=== PATIENT | male | born 1950 | race Caucasian/White ===

== ENCOUNTER 2016-09-26 10:44 | Inpatient (IN) | payer BC, MEDICARE, OTHER ==
[2016-09-26] MEDS ORDERED: RX INFO: IV CONTRAST WAS GIVEN 1 EACH MISC MISCELLANE PRN (11:39)
[2016-09-26] MEDS ORDERED: DIPH,PERTUS(ACELL)TETVAC-LF 0.5 ML VIAL IM ONE (11:51)
[2016-09-26 12:12] LABS: Basophils % (A) 0 %; CH 29.2; CHCM 32.8; Eosinophils # (A) 0.3 k/uL (0-0.7); Eosinophils % (A) 2 %; HCT 43.2 % (39.0-53.0); HDW 2.67; HGB 14.3 gm/dL (13.0-17.5); Luc # (Auto) 0.12; Luc % (Auto) 1; Lymphocytes # (A) 1.3 k/uL (1.0-4.8); Lymphocytes % (A) 9 %; MCH 29.6 pg (25.0-35.0); MCV 89.7 fL (80.0-100.0); Mean Platelet Volume 7.4; Monocytes # (A) 0.5 k/uL (0-1.0); Monocytes % (A) 3 %; Neutrophils # (A) 13.1 k/uL (1.3-7.7); Neutrophils % (A) 86 %; RBC 4.82 m/uL (4.30-5.90); RDW 14.8 % (11.5-15.5); WBC 15.3 k/uL (3.8-10.6); WBC (Perox) 15.34
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
[2016-09-26 12:27] LABS: ALT 35 U/L (21-72); AST 37 U/L (17-59); Alcohol <10 mg/dL; Alkaline Phosphatase 100 U/L (38-126); Anion Gap 10 mmol/L; Blood Urea Nitrogen 27 mg/dL (9-20); Calcium 8.5 mg/dL (8.4-10.2); Carbon Dioxide 23 mmol/L (22-30); Chloride 107 mmol/L (98-107); Glucose 106 mg/dL (74-99); Non-African American GFR(MDRD) 52 (>60 ml/min/1.73 sqM); Potassium 4.9 mmol/L (3.5-5.1); Sodium 140 mmol/L (137-145); Total Bilirubin 1.2 mg/dL (0.2-1.3)
[2016-09-26 12:32] LABS: INR 1.1 (<1.1); Partial Thromboplastin Time 22.3 sec (22.0-30.0); Prothrombin Time 10.7 sec (9.0-12.0)
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
[2016-09-26 12:55] LABS: Troponin I 0.014 ng/mL (0.000-0.034)
[2016-09-26 13:00] LABS: Creatine Kinase MB 8.6 ng/mL (0.0-2.4)
[2016-09-26 13:10] LABS: Appearance,Urine Clear (Clear); Bilirubin,Urine Negative (Negative); Glucose,Urine (UA) Negative (Negative); Ketones,Urine Negative (Negative); Leukocyte Esterase,Urine Negative (Negative); Nitrite,Urine Negative (Negative); PH, Urine 5.5 (5.0-8.0); Particle Count 2513; Protein,Urine 1+ (Negative); RBC,Urine 5 /hpf (0-5); Specific Gravity,Urine 1.023 (1.001-1.035); Sperm,Urine Moderate /hpf; UA Billing (MACRO vs. MICRO) MICRO; Urobilinogen,Urine <2.0 mg/dL (<2.0); WBC,Urine 3 /hpf (0-5)
--- NOTE | 2016-09-26 14:02 | XR ---
EXAMINATION TYPE: XR pelvis AP view DATE OF EXAM: 09/26/2016 CLINICAL HISTORY: pain TECHNIQUE: Single view the pelvis is submitted. FINDINGS: No evidence for fracture, dislocation or bony lesion. Joint spaces are well-preserved. S I joints appear symmetric. Right hip prosthesis is intact. IMPRESSION: 1. No acute fracture or dislocation seen. ICD 10 NO FRACTURE, INITIAL EVALUATION
--- NOTE | 2016-09-26 14:02 | XR ---
EXAMINATION TYPE: XR hand complete RT DATE OF EXAM ORDERED: 09/26/2016 HISTORY: Pain. COMPARISON: None. FINDINGS: No fracture or dislocation is seen. There are degenerative changes in the first carpometac arpal joint as well as the triscaphe joint. There is near complete loss of the radiocarpal joint. IMPRESSION: 1. NO ACUTE OSSEOUS LESION. 2. MODERATE DEGENERATIVE CHANGE.
--- NOTE | 2016-09-26 14:03 | XR ---
EXAMINATION TYPE: XR humerus RT DATE OF EXAM ORDERED: 09/26/2016 HISTORY: Pain. COMPARISON: None. FINDINGS: There are severe degenerative changes in the right shoulder with near complete loss of the shoulder joint space. There is remodeling change. There is decentering of the humeral head within th e glenohumeral joint. No fracture or dislocation is seen. IMPRESSION: 1. NO ACUTE OSSEOUS LESION. 2. SEVERE DEGENERATIVE CHANGE IN THE RIGHT SHOULDER.
--- NOTE | 2016-09-26 14:03 | XR ---
EXAMINATION TYPE: XR forearm RT DATE OF EXAM ORDERED: 09/26/2016 HISTORY: Pain. COMPARISON: None. FINDINGS: No fracture or dislocation is seen. No elbow joint effusion is seen. There is severe degen erative change in the radiocarpal joint of the right wrist. IMPRESSION: 1. NO ACUTE OSSEOUS LESION. 2. DEGENERATIVE CHANGE.
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
[2016-09-26] MEDS ORDERED: SODIUM CHLORIDE 0.9% 1,000 ML IV STA (14:11)
[2016-09-26] MEDS ORDERED: TOPICAL SKIN ADHESIVE 1 EACH AMP TOPICAL ONE (15:33)
[2016-09-26] MEDS ORDERED: ONDANSETRON 4 MG/2 ML VIAL IVP STA (15:35)
[2016-09-26] MEDS ORDERED: HYDROmorphone 1 MG/ML 1 ML SYRINGE IVP STA (15:35)
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
[2016-09-26] MEDS ORDERED: NALOXONE 0.4 MG/ML 1 ML VIAL IV PRN (16:28)
[2016-09-26] MEDS ORDERED: ONDANSETRON 4 MG/2 ML VIAL IVP PRN (16:28)
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
[2016-09-26] MEDS: SODIUM CHLORIDE 0.9% 1,000 ML IV SCH (18:07)
[2016-09-26] MEDS ORDERED: HYDROmorphone 1 MG/ML 1 ML SYRINGE IVP PRN ×2 (18:37)
[2016-09-26] MEDS: METOPROLOL SUCCINATE (ER) 50 MG TAB.ER.24H PO SCH (18:45)
[2016-09-26] MEDS: HYDROcodone/APAP 7.5-325MG 1 EACH TAB PO PRN ×2 (18:49→23:08)
[2016-09-26] MEDS: FAMOTIDINE 20 MG TAB PO SCH (21:03)
[2016-09-26] MEDS: ATORVASTATIN 10 MG TAB PO SCH (21:03)
[2016-09-27] MEDS: HYDROcodone/APAP 7.5-325MG 1 EACH TAB PO PRN ×5 (03:31→20:38)
[2016-09-27] MEDS: SODIUM CHLORIDE 0.9% 1,000 ML IV SCH ×2 (05:52→15:44)
[2016-09-27] MEDS: FAMOTIDINE 20 MG TAB PO SCH ×2 (07:48→21:45)
[2016-09-27] MEDS: VALSARTAN 160 MG TAB PO SCH (07:49)
[2016-09-27 08:03] LABS: Basophils % (A) 0 %; CH 29.1; CHCM 32.3; Eosinophils # (A) 0.1 k/uL (0-0.7); Eosinophils % (A) 1 %; HDW 2.58; HGB 12.4 gm/dL (13.0-17.5); Luc # (Auto) 0.11; Luc % (Auto) 2; Lymphocytes # (A) 1.1 k/uL (1.0-4.8); Lymphocytes % (A) 18 %; MCH 29.5 pg (25.0-35.0); MCHC 32.7 g/dL (31.0-37.0); MCV 90.5 fL (80.0-100.0); Mean Platelet Volume 7.5; Monocytes # (A) 0.4 k/uL (0-1.0); Monocytes % (A) 7 %; Neutrophils # (A) 4.4 k/uL (1.3-7.7); Neutrophils % (A) 72 %; RDW 14.9 % (11.5-15.5); WBC 6.1 k/uL (3.8-10.6); WBC (Perox) 5.89
[2016-09-27 08:15] LABS: Anion Gap 6 mmol/L; Blood Urea Nitrogen 27 mg/dL (9-20); Calcium 7.9 mg/dL (8.4-10.2); Carbon Dioxide 25 mmol/L (22-30); Chloride 108 mmol/L (98-107); Glucose 111 mg/dL (74-99); Non-African American GFR(MDRD) 53 (>60 ml/min/1.73 sqM); Potassium 4.5 mmol/L (3.5-5.1); Sodium 139 mmol/L (137-145)
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
[2016-09-27] MEDS: ASPIRIN 81 MG CHEW PO SCH (11:54)
--- NOTE | 2016-09-27 12:03 | XR ---
EXAMINATION TYPE: XR chest 2V DATE OF EXAM: 09/27/2016 COMPARISON: NONE HISTORY: Shortness of breath TECHNIQUE: Frontal and lateral views of the chest are obtained. FINDINGS: Scattered senescent parenchymal changes noted. Hyperinflation compatible with COPD. There is persistent right perihilar infiltrate. Correlate for pneumonia. Heart size is stable. Mediastinal structures are stable and grossly unremarkable. No evidence for hilar prominence. Degenerative changes dorsal spine. IMPRESSION: 1. There is persistent right perihilar infiltrate. Correlate for pneumonia.
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
[2016-09-27] MEDS: METOPROLOL SUCCINATE (ER) 50 MG TAB.ER.24H PO SCH (17:29)
[2016-09-27] MEDS: ATORVASTATIN 10 MG TAB PO SCH (21:45)
[2016-09-28] MEDS: HYDROcodone/APAP 7.5-325MG 1 EACH TAB PO PRN ×4 (02:09→20:52)
[2016-09-28] MEDS: SODIUM CHLORIDE 0.9% 1,000 ML IV SCH (06:24)
[2016-09-28] MEDS: FAMOTIDINE 20 MG TAB PO SCH ×2 (08:13→20:51)
[2016-09-28] MEDS: VALSARTAN 160 MG TAB PO SCH (08:13)
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
[2016-09-28] MEDS ORDERED: MAGNESIUM HYDROXIDE 2,400 MG/10 ML CUP PO PRN (09:13)
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
[2016-09-28] MEDS ORDERED: NEOMYCIN-BACITRACIN-POLY OINT 14 GM TUBE TOPICAL ONE (10:49)
[2016-09-28] MEDS: DOCUSATE 100 MG CAP PO SCH (11:29)
[2016-09-28] MEDS: ASPIRIN 81 MG CHEW PO SCH (12:47)
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
[2016-09-28] MEDS: METOPROLOL SUCCINATE (ER) 50 MG TAB.ER.24H PO SCH (17:14)
[2016-09-28] MEDS: ATORVASTATIN 10 MG TAB PO SCH (20:51)
[2016-09-29] MEDS: HYDROcodone/APAP 7.5-325MG 1 EACH TAB PO PRN ×3 (06:37→20:49)
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
[2016-09-29] MEDS: FAMOTIDINE 20 MG TAB PO SCH ×2 (09:40→20:38)
[2016-09-29] MEDS: VALSARTAN 160 MG TAB PO SCH (09:40)
[2016-09-29] MEDS: DOCUSATE 100 MG CAP PO SCH (09:40)
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
[2016-09-29 11:28] VITALS: RESP 16
[2016-09-29] MEDS: ASPIRIN 81 MG CHEW PO SCH (11:51)
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
[2016-09-29] MEDS: METOPROLOL SUCCINATE (ER) 50 MG TAB.ER.24H PO SCH (17:31)
[2016-09-29] MEDS: ATORVASTATIN 10 MG TAB PO SCH (20:38)
[2016-09-30 07:40] VITALS: BP 134/72; PULSE 85; TEMP 97.5
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
[2016-09-30] MEDS: DOCUSATE 100 MG CAP PO SCH (09:28)
[2016-09-30] MEDS: FAMOTIDINE 20 MG TAB PO SCH (09:28)
[2016-09-30] MEDS: VALSARTAN 160 MG TAB PO SCH (09:28)
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
[2016-09-30] MEDS: ASPIRIN 81 MG CHEW PO SCH (12:42)
== END 2016-09-30 13:35 | DRG 184 ==
LOC: EC 10:44 → 6SEL 16:39 → 5MS5E 09-29 23:25
PROVIDERS: ADMIT Surgery; ATTEND Surgery
PROC: 0HQFXZZ Repair Right Hand Skin, External Approach (ICD-10-PCS; principal; 2016-09-26)
PROC: 2W3CX1Z Immobilization of Right Lower Arm using Splint (ICD-10-PCS; 2016-09-26)
PROC: 2W3 Placement, Anatomical Regions, Immobilization (ICD-10-PCS; 2016-09-26)
PROC: 2W35X3Z Immobilization of Back using Brace (ICD-10-PCS; 2016-09-26)
PROC: 0SS Lower Joints, Reposition (ICD-10-PCS; 2016-09-26)
PROC: 3E0234Z Introduction of Serum, Toxoid and Vaccine into Muscle, Percutaneous Approach (ICD-10-PCS; 2016-09-26)
DX: S22.21XA Fracture of manubrium, initial encounter for closed fracture (principal); S52.514A Nondisplaced fracture of right radial styloid process, initial encounter for closed fracture; S32.019A Unspecified fracture of first lumbar vertebra, initial encounter for closed fracture; S27.329A Contusion of lung, unspecified, initial encounter; S32.029A Unspecified fracture of second lumbar vertebra, initial encounter for closed fracture; I42.9 Cardiomyopathy, unspecified; S32.039A Unspecified fracture of third lumbar vertebra, initial encounter for closed fracture; S32.049A Unspecified fracture of fourth lumbar vertebra, initial encounter for closed fracture; S22.41XA Multiple fractures of ribs, right side, initial encounter for closed fracture; N13.2 Hydronephrosis with renal and ureteral calculous obstruction; S16.1XXA Strain of muscle, fascia and tendon at neck level, initial encounter; S61.411A Laceration without foreign body of right hand, initial encounter; S93.124A Dislocation of metatarsophalangeal joint of right lesser toe(s), initial encounter; S92.344A Nondisplaced fracture of fourth metatarsal bone, right foot, initial encounter for closed fracture; S20.212A Contusion of left front wall of thorax, initial encounter; S30.1XXA Contusion of abdominal wall, initial encounter; N18.9 Chronic kidney disease, unspecified; I12.9 Hypertensive chronic kidney disease with stage 1 through stage 4 chronic kidney disease, or unspecified chronic kidney disease; E78.5 Hyperlipidemia, unspecified; K21.9 Gastro-esophageal reflux disease without esophagitis; J98.6 Disorders of diaphragm; R53.1 Weakness; I45.4 Nonspecific intraventricular block; I44.4 Left anterior fascicular block; F40.240 Claustrophobia; R40.2410 Glasgow coma scale score 13-15, unspecified time; M19.031 Primary osteoarthritis, right wrist; M19.041 Primary osteoarthritis, right hand; R91.8 Other nonspecific abnormal finding of lung field; R59.0 Localized enlarged lymph nodes; M25.561 Pain in right knee; R93.8 Abnormal findings on diagnostic imaging of other specified body structures; H53.8 Other visual disturbances; R42 Dizziness and giddiness; Z23 Encounter for immunization; Z96.662 Presence of left artificial ankle joint; Z96.659 Presence of unspecified artificial knee joint; Z87.19 Personal history of other diseases of the digestive system; Z87.01 Personal history of pneumonia (recurrent); Z88.1 Allergy status to other antibiotic agents; Z79.82 Long term (current) use of aspirin; Z90.49 Acquired absence of other specified parts of digestive tract; Z96.641 Presence of right artificial hip joint; Z82.49 Family history of ischemic heart disease and other diseases of the circulatory system; Z79.899 Other long term (current) drug therapy; Z87.442 Personal history of urinary calculi; V43.52XA Car driver injured in collision with other type car in traffic accident, initial encounter; Y92.410 Unspecified street and highway as the place of occurrence of the external cause
CPT/HCPCS: 12002; 28630; 29125; 36415; 70450; 71010; 71020; 71260; 72125; 72170; 74177; 80048; 80053; 80306; 80320; 81001; 82550; 82553; 84484; 85025; 85610; 85730; 86850; 86900; 86901; 90471; 90715; 93005; 96361; 96374; 96375; 99285

== ENCOUNTER → 2017-01-26 | Outpatient (CLI) | payer MEDICARE, BC ==
--- NOTE | 2017-01-26 15:57 | XR ---
EXAMINATION TYPE: XR KUB DATE OF EXAM: 01/26/2017 3:50 PM CLINICAL HISTORY: Left-sided kidney stone. TECHNIQUE: Two supine KUB images of the abdomen are obtained. COMPARISON: CT chest abdomen and pelvis September 26, 2016. FINDINGS: Large obstructing distal ureter stone is likely still present in the left pelvis less well seen on x-ray versus CT. No additional renal calculi are clearly seen. There is scoliotic curvature with marked disc space narrowing, sclerosis, and spurring in the left as pect of the mid to lower lumbar spine. Cholecystectomy clips are redemonstrated. There are healing fr actures of the posterior right 10th and 11th ribs now identified. Metallic hardware from right hip westfall rgery is redemonstrated only partially imaged currently. Overall nonobstructive bowel gas pattern is noted. IMPRESSION: Large distal left ureter calculus may still be present though is less well seen on plain films versus CT.
== END | disposition home or self-care (01) ==
LOC: RADXRMAIN 15:39
PROVIDERS: ATTEND Urology
DX: N20.0 Calculus of kidney (principal)
CPT/HCPCS: 74000

== ENCOUNTER 2017-02-10 10:52 | Day surgery (SDC) | payer MEDICARE, BC ==
[2017-02-04 13:07] VITALS: BMI 32.1
[~2017-02-10 10:52] MED LIST: HYDROmorphone 0.5 MG/0.5 ML SYRINGE IVP PRN; LACTATED RINGERS 1,000 ML IV SCH; LEVOFLOXACIN 500MG-D5W PMX 500 MG in DEXTROSE/WATER 1 100ML.BAG IVPB ONE; ONDANSETRON 4 MG/2 ML VIAL IVP ONE
--- NOTE | 2017-02-10 10:56 | XR ---
EXAMINATION TYPE: XR KUB DATE OF EXAM: 02/10/2017 10:47 AM CLINICAL HISTORY: Left-sided nephrolithiasis TECHNIQUE: Single supine KUB image of the abdomen is obtained. COMPARISON: 01/26/2017 and 09/26/2016 FINDINGS: Persistent approximately 1.0 x 0.9 cm left distal ureteral calculus is redemonstrated near the ureterovesicular junction. No additional renal or ureteral calculi are seen. Cholecystectomy clip s are seen within the right upper quadrant. Right femoral arthroplasty is present. Mild S-shaped scol iotic curvature of the visualized thoracolumbar spine with moderate degenerative changes. Scattered g as is seen in non-distended small bowel loops. Gas and fecal material is seen in non-distended colon. IMPRESSION: 1. Similar approximately 1.0 x 0.9 cm left distal ureteral calculus. 2. No additional radiopaque renal or ureteral calculi.
[2017-02-10] MEDS ORDERED: LIDOCAINE 1% 20 ML VIAL (10MG/ML) FOR IV START INTRADERMA ONE (11:43)
[2017-02-10] MEDS ORDERED: PROPOFOL 10 MG/ML 20 ML VIAL IV ONE (13:01)
[2017-02-10] MEDS ORDERED: MIDAZOLAM 2 MG/2 ML VIAL ONE (13:01)
[2017-02-10] MEDS ORDERED: ePHEDrine SULFATE/0.9% NACL/PF 50 MG/5 ML SYRINGE IV ONE (13:01)
[2017-02-10] MEDS ORDERED: LIDOCAINE 1% INJ 10MG/ML (20 ML MDV) ONE (13:01)
[2017-02-10] MEDS ORDERED: fentaNYL (PF) 50 MCG/ML 2 ML AMP ONE (13:01)
[2017-02-10] MEDS ORDERED: PHENYLEPHRINE-0.9% NACL SYG 1 MG/10 ML SYRINGE ONE (13:01)
[2017-02-10] MEDS ORDERED: SUCCINYLCHOLINE CHLORIDE VIAL 200 MG/10 ML VIAL IV ONE (13:01)
[2017-02-10] MEDS ORDERED: LACTATED RINGERS 1,000 ML IV ONE ×2 (14:34)
[2017-02-10] MEDS ORDERED: IOHEXOL 350 MG/ML 50ML BOTTLE IRRIGATION ONE (15:35)
--- NOTE | 2017-02-10 15:56 | P.OP ---
Date of Procedure: 02/10/17 Preoperative Diagnosis: Left Ureteral Calculus Postoperative Diagnosis: Same Procedure(s) Performed: Cystoscopy, Left Ureteroscopy With Holmium Laser Lithotripsy And Stone Basketing , Left Ureteral Stent Insertion Anesthesia: QUE Surgeon: Bryan Suarez Estimated Blood Loss (ml): 20 IV fluids (ml): 2,500 Pathology: none sent Condition: stable Disposition: PACU Indications for Procedure: He is a 66-year-old male with a history of recurrent urolithiasis. A 24-hour urine study has shown several abnormalities, including diminished urine total volume, hypercalciuria, hyperoxaluria, and hypocitraturia. He was advised to increase citrate and fluids, and decrease his calcium and oxalate consumption. He declined treatment with potassium citrate, as well as a repeat 24-hour urine study. He was recently found to have a left distal ureteral calculus causing significant left hydronephrosis, and he has elected to undergo ureteroscopic removal of the calculus. Operative Findings: Large left distal ureteral calculus, fragmented completely. Description of Procedure: The patient was taken to the operating room and placed in the dorsolithotomy position, with legs supported in José Manuel stirrups. The external genitalia was prepped and draped sterilely. The 30 lens was used to introduce the 19-Libyan Stortz cystoscopic sheath through the urethra and into the bladder under direct vision. The prostatic urethra showed evidence of lateral lobe enlargement resulting in complete occlusion. The bladder was examined in its entirety. Both ureteral orifices were normal anatomic location and configuration. No tumors or foreign bodies were seen. The [facility] semirigid ureteroscope was advanced into the bladder, and the left ureteral orifice was cannulated. The ureteroscope was advanced under direct vision, and a large calculus was identified. The 200 micron Holmium laser probe was passed through the ureteroscope, and lithotripsy was performed. Initially, a testing technique was utilized.. The then, the settings were changed to perform fragmentation of the closure of the calculus. A 1.9-Libyan nitinol basket was then used to retrieve the larger calculus fragments. Those were remaining were less than 1 mm in size. There is no evidence of ureteral perforation. A 0.035 inch Glidewire was passed through the ureteroscope and up to the left renal pelvis. The mid ureter coursed medially, and therefore an open-ended ureteral catheter was passed over the Glidewire, up to the left renal pelvis. Contrast was injected to confirm placement within the intrarenal collecting system. The Glidewire was then passed through the ureteral catheter, which was removed. The Glidewire was then backloaded into the cystoscope, which was passed into the bladder. A 26 cm, 4.8-Libyan double-J ureteral stent was placed over the wire. Proper stent positioning was verified fluoroscopically and endoscopically. The bladder was emptied and the cystoscope removed. The patient tolerated the procedure well and was taken to the recovery room in stable condition.
[2017-02-10 15:59] VITALS: RESP 16; TEMP 98.3
[2017-02-10 18:04] VITALS: BP 121/78; PULSE 94
--- NOTE | 2017-02-11 07:23 | FL ---
EXAMINATION TYPE: FL urography retrograde DATE OF EXAM: 02/10/2017 COMPARISON: NONE HISTORY: Left ureteral calculus with lithotripsy and stent insertion TECHNIQUE: Fluoroscopy. FINDINGS/IMPRESSION: Fluoroscopic guidance was provided during procedure performed by Dr. Suarez. A total of 31 seconds of fluoroscopic time was utilized during the procedure and 1 spot images was acq uired.
== END 2017-02-10 18:28 | disposition home or self-care (01) ==
LOC: OR 10:52
PROVIDERS: ATTEND Urology
DX: N13.2 Hydronephrosis with renal and ureteral calculous obstruction (principal); N28.1 Cyst of kidney, acquired; N40.1 Benign prostatic hyperplasia with lower urinary tract symptoms; R94.4 Abnormal results of kidney function studies; E83.52 Hypercalcemia; E72.53 Primary hyperoxaluria; I42.9 Cardiomyopathy, unspecified; E78.00 Pure hypercholesterolemia, unspecified; I10 Essential (primary) hypertension; K21.9 Gastro-esophageal reflux disease without esophagitis; Z79.82 Long term (current) use of aspirin; Z79.2 Long term (current) use of antibiotics; Z79.899 Other long term (current) drug therapy; Z88.1 Allergy status to other antibiotic agents
CPT/HCPCS: 74000; 74420; 52356; C2625; C1758 ×2; C1769; J2250; J0330; J1956; J2001; J3010; J2370; J2704; Q9967

== ENCOUNTER → 2017-04-14 | Outpatient (CLI) | payer MEDICARE, BC ==
--- NOTE | 2017-04-14 09:15 | US ---
EXAMINATION TYPE: US kidneys/renal and bladder DATE OF EXAM: 04/14/2017 COMPARISON: CT and US CLINICAL HISTORY: R93.4 HX OF HYDRONEPHROSIS. History of kidney stones and hydro EXAM MEASUREMENTS: Right Kidney: 13.3 x 6.2 x 5.9 cm Left Kidney: 12.1 x 5.8 x 5.8 cm Right Kidney: No evidence of hydro, cyst mid= 2.8 x 2.6 x 3.4 cm/ Possible, small calculi scattered t hroughout, largest= 5mm Left Kidney: Multicystic with largest cyst mid= 5.1 x 4.4 x 4.4 cm/ Cortical thinning, difficult to v isualize kidney Bladder: wnl Bilateral Jets seen: Only right jet visualized IMPRESSION: 1. Renal cystic changes bilaterally. 2. Nonobstructing right-sided nephrolithiasis.
== END | disposition home or self-care (01) ==
LOC: RADUSWWP 08:31
PROVIDERS: ATTEND Urology
DX: N20.0 Calculus of kidney (principal); N28.1 Cyst of kidney, acquired; Z87.448 Personal history of other diseases of urinary system
CPT/HCPCS: 76770

== ENCOUNTER → 2017-06-08 | Outpatient (CLI) | payer MEDICARE, BC ==
[2017-06-08 10:33] LABS: Potassium 5.3 mmol/L (3.5-5.1)
== END | disposition home or self-care (01) ==
LOC: LABWHC1 09:42
PROVIDERS: ATTEND Urology
DX: N20.1 Calculus of ureter (principal); R82.99 Other abnormal findings in urine
CPT/HCPCS: 36415; 80051

== ENCOUNTER → 2018-06-03 | Outpatient (CLI) | payer MEDICARE, BC ==
--- NOTE | 2018-06-03 15:09 | CT ---
EXAMINATION TYPE: CT chest wo con DATE OF EXAM: 06/03/2018 COMPARISON: Chest x-ray 05/28/[address] 03/19/2017 HISTORY: Hilar adenopathy CT DLP: 610.30 mGycm. Automated Exposure Control for Dose Reduction was Utilized. TECHNIQUE: CT scan of the thorax is performed without IV contrast. FINDINGS: Lack of contrast could compromise sensitivity. LUNGS: Thickened interstitial bands are again noted within the perihilar locations. There is no pleural effusion or pneumothorax seen. The tracheobronchial tree is patent. MEDIASTINUM: Extensive hilar calcifications and soft tissue prominence is stable compared to prior ex am. No cardiomegaly or pericardial effusion is seen. OTHER: Cystic changes associated with the kidneys is again noted. Diverticular change present within the colon. Patient is post cholecystectomy. Surgical clips are present. 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 IMPRESSION: Exam is stable. Old granulomatous disease. Noncontrast exam.
== END | disposition home or self-care (01) ==
LOC: RADCTMAIN 12:55
PROVIDERS: ATTEND Internal Medicine
DX: R59.0 Localized enlarged lymph nodes (principal); Z88.1 Allergy status to other antibiotic agents
CPT/HCPCS: 71250

== ENCOUNTER → 2018-08-25 | Outpatient (CLI) | payer MEDICARE, BC ==
[2018-08-25 10:03] LABS: Basophils % (A) 0 %; Eosinophils # (A) 0.4 k/uL (0-0.7); Eosinophils % (A) 6 %; HCT 46.8 % (39.0-53.0); HGB 14.8 gm/dL (13.0-17.5); Lymphocytes # (A) 1.5 k/uL (1.0-4.8); Lymphocytes % (A) 24 %; MCH 28.1 pg (25.0-35.0); MCHC 31.7 g/dL (31.0-37.0); MCV 88.7 fL (80.0-100.0); Mean Platelet Volume 7.1; Monocytes # (A) 0.4 k/uL (0-1.0); Monocytes % (A) 6 %; Neutrophils # (A) 3.7 k/uL (1.3-7.7); Neutrophils % (A) 60 %; Platelet Count 162 k/uL (150-450); RBC 5.28 m/uL (4.30-5.90); RDW 15.6 % (11.5-15.5); WBC 6.1 k/uL (3.8-10.6)
[2018-08-25 12:55] LABS: Erythrocyte Sedimentation Rate 6 mm/hr (0-15)
[2018-08-25 18:20] LABS: Albumin 4.3 g/dL (3.80-4.90); Albumin/Globulin Ratio 2.05 (1.60-3.17); Anion Gap 11.4 mmol/L (4.00-12.00); C Reactive Protein 0.6 mg/dL (0.0-0.8); Calcium 9.2 mg/dL (8.7-10.3); Carbon Dioxide 25.6 mmol/L (21.6-31.8); Globulin 2.1 g/dL (1.6-3.3); LDL Cholesterol,Calculated 76.6 mg/dL (0.0-131.0); Magnesium 1.8 mg/dL (1.5-2.4); Potassium 5.4 mmol/L (3.5-5.5); Total Bilirubin 0.9 mg/dL (0.3-1.2); Total Protein 6.4 g/dL (6.2-8.2); Uric Acid 7.9 mg/dL (3.7-8.7); VLDL Calculation 34.4 mg/dL (5.00-40.00)
[2018-08-25 18:27] LABS: T4, Free (Free Thyroxine) 1.1 ng/dL (0.80-1.80)
[2018-08-25 18:42] LABS: Iron Saturation 18.24 (15.00-50.00)
[2018-08-25 20:43] LABS: Hemoglobin A1C 5.8 % (4.0-6.0)
== END | disposition home or self-care (01) ==
LOC: LABWHC1 08:34
PROVIDERS: ATTEND Urology
DX: C61 Malignant neoplasm of prostate (principal); E78.5 Hyperlipidemia, unspecified; D64.9 Anemia, unspecified; I11.9 Hypertensive heart disease without heart failure; I43 Cardiomyopathy in diseases classified elsewhere
CPT/HCPCS: 36415; 80053; 80061; 82550; 82728; 83036; 83540; 83550; 83735; 84153; 84439; 84443; 84550; 85025; 85652; 86140

== ENCOUNTER → 2019-02-25 | Outpatient (CLI) | payer MEDICARE, BC | END | disposition home or self-care (01) | LOC: LABWHC1 10:48 | PROVIDERS: ATTEND Urology | DX: C61 Malignant neoplasm of prostate (principal) | CPT/HCPCS: 36415; 84153 ==

== ENCOUNTER → 2019-03-09 | Outpatient (CLI) | payer MEDICARE, BC ==
[2019-03-09 11:07] LABS: Basophils # (A) 0.1 k/uL (0-0.2); Basophils % (A) 1 %; Eosinophils # (A) 0.2 k/uL (0-0.7); Eosinophils % (A) 3 %; HCT 51.3 % (39.0-53.0); HGB 16.2 gm/dL (13.0-17.5); Lymphocytes # (A) 1.4 k/uL (1.0-4.8); Lymphocytes % (A) 20 %; MCH 28.4 pg (25.0-35.0); MCHC 31.6 g/dL (31.0-37.0); MCV 89.8 fL (80.0-100.0); Mean Platelet Volume 7.2; Monocytes # (A) 0.4 k/uL (0-1.0); Monocytes % (A) 6 %; Neutrophils # (A) 4.7 k/uL (1.3-7.7); Neutrophils % (A) 68 %; Platelet Count 161 k/uL (150-450); RBC 5.71 m/uL (4.30-5.90); RDW 14.7 % (11.5-15.5)
[2019-03-09 11:10] LABS: Appearance,Urine Clear (Clear); Bilirubin,Urine Negative (Negative); Blood,Urine Trace (Negative); Color,Urine Yellow; Glucose,Urine (UA) Negative (Negative); Ketones,Urine Negative (Negative); Leukocyte Esterase,Urine Negative (Negative); Mucus,Urine Rare /hpf; Nitrite,Urine Negative (Negative); PH, Urine 5.5 (5.0-8.0); Protein,Urine Negative (Negative); RBC,Urine 1 /hpf (0-5); Specific Gravity,Urine 1.018 (1.001-1.035); Urobilinogen,Urine <2.0 mg/dL (<2.0); WBC,Urine 1 /hpf (0-5)
[2019-03-09 11:19] LABS: Partial Thromboplastin Time 25.8 sec (22.0-30.0); Prothrombin Time 10.6 sec (9.0-12.0)
[2019-03-09 16:12] LABS: African American GFR (CKD) 70.6 (60.0-200.0); Albumin 4.4 g/dL (3.80-4.90); Albumin/Globulin Ratio 1.91 (1.60-3.17); Anion Gap 6.4 mmol/L (4.00-12.00); BUN/Creat Ratio 18.33 Ratio (12.00-20.00); Calcium 9.1 mg/dL (8.7-10.3); Carbon Dioxide 28.6 mmol/L (21.6-31.8); Chol/HDL Ratio 3.29; Globulin 2.3 g/dL (1.6-3.3); LDL Cholesterol,Calculated 75.2 mg/dL (0.0-131.0); Non-African American GFR(CKD) 60.9 (60.0-200.0); Potassium 4.8 mmol/L (3.5-5.5); Total Bilirubin 0.9 mg/dL (0.2-1.2); Total Protein 6.7 g/dL (6.2-8.2); VLDL Calculation 36.8 mg/dL (5.00-40.00)
[2019-03-09 19:06] LABS: Hemoglobin A1C 5.8 % (4.0-6.0)
== END | disposition home or self-care (01) ==
LOC: LABWHC1 09:49
PROVIDERS: ATTEND Internal Medicine
DX: I42.9 Cardiomyopathy, unspecified (principal); E78.5 Hyperlipidemia, unspecified; N40.1 Benign prostatic hyperplasia with lower urinary tract symptoms; R73.01 Impaired fasting glucose
CPT/HCPCS: 36415; 80053; 80061; 81001; 83036; 84443; 85025; 85610; 85730

== ENCOUNTER → 2019-03-11 | Outpatient (CLI) | payer MEDICARE, BC ==
--- NOTE | 2019-03-14 09:28 | MR ---
EXAMINATION TYPE: MR Prostate wo/w con DATE OF EXAM: 03/11/2019 COMPARISON: None. IMAGE QUALITY: Suboptimal but repeat not required. INDICATION: Prostate cancer PSA: 7.7 ng/ml on February 25, 2019 Recent Biopsy and Date: April 30, 2018 Pathology Report (If Applicable): Jacquelin score 3+3 = 6 location of positive biopsy not provided. TECHNIQUE: Examination was performed using a 3T MRI without an endorectal coil. Multiparametric imaging was perf ormed with T2 mutliplanar sequences, axial diffusion weighted imaging and dynamic contrast enhanced i maging, utilizing 10 mL intravenous Gadavist gadolinium contrast. FINDINGS: There is no clinically significant cancer identified. PROSTATE VOLUME: 5.2 cm SI x 3.7 cm AP x 4.5 cm LR Vol= 45.3 cc PSA DENSITY: 5.436 ng/ml/cc Peripheral zone anatomy distorted by artifact from right hip metallic hardware. No obvious hypointens e areas noted. Central transitional zone is heterogeneous without well-defined irregular ill-defined areas of hypoin tensity on T2-weighted images. Prosthetic capsule maintained. Seminal vesicles are within normal limits. Bladder wall shows mild thickening and trabeculation presumed related to products of enlarged prostat e gland. No pelvic adenopathy or concerning fluid collection. Artifact from metallic hardware also noted left hip region. IMPRESSION: Suboptimal study. A focus of clinically significant cancer is not identified. Highest Assessment Category: 1 MRI Stage: T1c N0 M0 based on review of pelvic images. False negative rates for MRI range from 5-20% depending on risk profile. Assessment Categories: 1 ? Very low (clinically significant cancer is highly unlikely to be present) 2 ? Low (clinically significant cancer is unlikely to be present) 3 ? Intermediate (the presence of clinically significant cancer is equivocal) 4 ? High (clinically significant cancer is likely to be present) 5 ? Very high (clinically significant cancer is highly likely to be present) Locations: PZ = peripheral zone; TZ = transition zone CZ=central zone; AFS = anterior fibromuscular stroma a=anterior half (i.e. PZa=anterior half of peripheral zone); pm= posterior medial (i.e PZpm) pl = postero-lateral (i.e. PZpl); p = posterior half (i.e. TZp) ; a = anterior half (i.e TZa or P Za) Other: N=no or no; E= equivocal; Y=yes EPE = extraprostatic extension NVB = neurovascular bundle NA = not applicable/not available
== END | disposition home or self-care (01) ==
LOC: RADMRIMAIN 07:25
PROVIDERS: ATTEND Urology
DX: C61 Malignant neoplasm of prostate (principal)
CPT/HCPCS: 72197; A9585

== ENCOUNTER → 2019-06-14 | Outpatient (CLI) | payer MEDICARE, BC ==
--- NOTE | 2019-06-14 12:02 | XR ---
EXAMINATION TYPE: XR KUB DATE OF EXAM: 06/14/2019 CLINICAL DATA: 68-year-old male with left-sided flank pain and history of stones, [facility] COMPARISON: 02/10/2017 FINDINGS: Bilateral total hip arthroplasties partially visualized. There may be some polyethylene liner wear on the right given some eccentricity to the positioning of the femoral head component that appears rela tively similar to 2017. Degenerated dextro convex scoliosis lumbar spine. Cholecystectomy clips. No suspicious calcification is identified. Nonobstructive bowel gas pattern. No significant stool burden. IMPRESSION: 1. No suspicious calcification identified. 2. Nonobstructive bowel gas pattern. No significant stool burden.
== END | disposition home or self-care (01) ==
LOC: RADXRMAIN 09:58
PROVIDERS: ATTEND Urology
DX: R10.9 Unspecified abdominal pain (principal)
CPT/HCPCS: 74018

== ENCOUNTER → 2019-08-26 | Outpatient (CLI) | payer MEDICARE, BC | END | disposition home or self-care (01) | LOC: LABWHC1 08:15 | PROVIDERS: ATTEND Urology | DX: C61 Malignant neoplasm of prostate (principal) | CPT/HCPCS: 36415; 84153 ==

== ENCOUNTER → 2019-12-09 | Outpatient (CLI) | payer MEDICARE, BC ==
[2019-12-09 08:39] LABS: Basophils % (A) 0 %; Eosinophils # (A) 0.3 k/uL (0-0.7); Eosinophils % (A) 4 %; HCT 48.1 % (39.0-53.0); HGB 15.1 gm/dL (13.0-17.5); Lymphocytes # (A) 1.6 k/uL (1.0-4.8); Lymphocytes % (A) 25 %; MCH 28.8 pg (25.0-35.0); MCHC 31.3 g/dL (31.0-37.0); MCV 91.8 fL (80.0-100.0); Monocytes # (A) 0.4 k/uL (0-1.0); Monocytes % (A) 6 %; Neutrophils # (A) 4.1 k/uL (1.3-7.7); Neutrophils % (A) 63 %; Platelet Count 144 k/uL (150-450); RBC 5.24 m/uL (4.30-5.90); RDW 14.9 % (11.5-15.5); WBC 6.5 k/uL (3.8-10.6)
[2019-12-09 08:51] LABS: Calcium 8.8 mg/dL (8.4-10.2); Potassium 5.3 mmol/L (3.5-5.1)
== END | disposition home or self-care (01) ==
LOC: LABPAT 08:05
PROVIDERS: ATTEND Urology
DX: Z01.818 Encounter for other preprocedural examination (principal); C61 Malignant neoplasm of prostate
CPT/HCPCS: 36415; 80048; 85025

== ENCOUNTER 2019-12-15 10:00 | Day surgery (SDC) | payer MEDICARE, BC ==
[2019-12-12 10:28] VITALS: BMI 33.4
--- NOTE | 2019-12-14 12:51 | P.GSHP ---
History of Present Illness H&P Date: 12/14/19 Chief Complaint: Prostate cancer The patient is a 69-year-old white male whose PSA level tatiana to 7.53 and February 2018. He underwent a prostate ultrasound with biopsies, revealing [place] 6 adenocarcinoma in 3 of 12 biopsies. He chose active surveillance over treatment. An MRI in February 2019 was suboptimal. In August 2019, the PSA level tatiana to 9.0. Repeat biopsies showed a prostate volume of 41.7 mL, and 4 of 12 biopsies showed evidence of adenocarcinoma, with 2 revealing [place] 7 adenocarcinoma (3+4) in 2 revealing [place] 6 adenocarcinoma. Had a lengthy discussion with the patient and his family, suggesting that the findings were consistent with disease progression and in view of this he was advised to undergo treatment. He was advised that optimal options include a robotic- assisted laparoscopic prostatectomy (RALP) versus IMRT. The pros, cons, and ris ks of each were reviewed in detail. He has elected to undergo an RALP and comes for this reason. His tractor engine mechanic is Dr. Myrick, who states that the patient's cardiac condition has been stable for the past 7 years. - Cardiovascular Cardiovascular: Denies chest pain - Respiratory Respiratory: Denies dyspnea Past Medical History Past Medical History: Cancer, GERD/Reflux, Hyperlipidemia, Osteoarthritis (OA), Pneumonia Additional Past Medical History / Comment(s): kidney stones-HAD EPISODE OF KIDNEY FAILURE SINCE RESOLVED, DENIES ANY HIGH BP TAKES MED D/T"LOWER CHAMBER OF HEART IS SLUGGISH", nonischemic cardiomyopathy, hx. 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 hip, left knee,meniscus repair , right hand carpal tunnel surgery, lithothripsy x2, rt foot Past Anesthesia/Blood Transfusion Reactions: Previous Problems w/ Anesthesia, Family History of Problems w/ Anesthesia Additional Past Anesthesia/Blood Transfusion Reaction / Comment(s): pt aspirated during sx once and had post op pneumonia, claustrophobia. mother has difficulty waking Smoking Status: Never smoker - Past Family History Father Family Medical History: Myocardial Infarction (CT) Additional Family Medical History / Comment(s): Father at age 71 from a myocardial infarction. There is strong family history on his father's side of cardiac disease. Mother Family Medical History: Cancer Additional Family Medical History / Comment(s): Mother is alive at 89 with no major medical problems. Sister(s) Additional Family Medical History / Comment(s): Patient has 2 sisters with no major medical problems. Patient does not have any brothers. Daughter(s) Additional Family Medical History / Comment(s): Patient has 2 daughters and 1 son with no major medical problems. Medications and Allergies Home Medications Medication Instructions Recorded Confirmed Type Metoprolol Succinate [Toprol XL] 50 mg PO W/SUPPER 08/07/14 12/12/19 History Simvastatin [Zocor] 20 mg PO HS 08/07/14 12/12/19 History Potassium Citrate [Potassium 1,620 meq PO BID 12/12/19 12/12/19 History Citrate ER] Ubidecarenone [Co Q-10] 100 mg PO DAILY 12/12/19 12/12/19 History Allergies Allergy/AdvReac Type Severity Reaction Status Date / Time cephalexin monohydrate Allergy Swelling,SO Verified 12/12/19 08:49 [From Keflex] B prednisone Allergy Abdominal Verified 12/12/19 08:49 Pain, ABDOMINAL BLOATING Surgical - Exam - General well developed, well nourished, no distress - Neck no masses, trachea midline - Respiratory normal respiratory effort, clear to auscultation - Cardiovascular Rhythm: regular Abnormal Heart Sounds: no systolic murmur, no diastolic murmur, no rub, no S3 Gallop, no S4 Gallop, no click, no other - Abdomen Abdomen: soft, non tender, no guarding, no rigid, no rebound - Genitourinary normal penis with no external lesions, testicles non-tender - Rectum Rectum: normal sphincter tone, no masses, other (Prostate moderately enlarged and smooth) - Psychiatric oriented to time, oriented to person, oriented to place, speech is normal, memory intact Assessment and Plan (1) Malignant neoplasm of prostate Status: Acute Code(s): C61 - MALIGNANT NEOPLASM OF PROSTATE SNOMED Code(s): 449851220 Plan: RALP with bilateral pelvic lymphadenectomy. As stated, the procedure has been reviewed in detail with the patient and his family. They are aware of potential risks, which include anesthesia, bleeding, infection, bowel injury, lymphocele, urinary leak, vesical neck contracture, and urethral stricture. The possibility of post-prostatectomy urinary incontinence was discussed in great detail. A partial nerve sparing procedure will be performed, but despite this the patient was advised that he will likely experience erectile dysfunction following the procedure. He is aware of the possible need to convert to an open procedure, as well as the possible need for adjuvant therapy.
[~2019-12-15 10:00] MED LIST changes: +HEPARIN SODIUM,PORCINE 5,000 UNIT/ML 1 ML VIAL SQ ONE; -LACTATED RINGERS 1,000 ML IV SCH
[2019-12-15] MEDS ORDERED: ONDANSETRON 4 MG/2 ML VIAL ONE ×2 (10:40→13:45)
[2019-12-15] MEDS ORDERED: HEPARIN SODIUM,PORCINE 5,000 UNIT/ML 1 ML VIAL ONE (10:40)
[2019-12-15] MEDS ORDERED: LIDOCAINE 1% (10MG/ML) FOR IV START INTRADERMA ONE (11:00)
[2019-12-15] MEDS: LACTATED RINGERS 1,000 ML IV SCH (11:05)
[2019-12-15] MEDS ORDERED: GLYCOPYRROLATE 0.2 MG/ML 2 ML VIAL ONE (13:45)
[2019-12-15] MEDS ORDERED: NEOSTIGMINE 1 MG/ML 10 ML VIAL ONE (13:45)
[2019-12-15] MEDS ORDERED: ROCURONIUM BROMIDE 10 MG/ML 5 ML VIAL IV ONE (13:45)
[2019-12-15] MEDS ORDERED: MIDAZOLAM 2 MG/2 ML VIAL ONE (13:45)
[2019-12-15] MEDS ORDERED: SUCCINYLCHOLINE CHLORIDE 100 MG/5 ML SYR IV ONE (13:45)
[2019-12-15] MEDS ORDERED: ETOMIDATE 2 MG/ML 10 ML VIAL ONE (13:45)
[2019-12-15] MEDS ORDERED: WATER FOR INJECTION, STERILE 10 ML VIAL IV ONE (13:45)
[2019-12-15] MEDS ORDERED: PHENYLEPHRINE-0.9% NACL SYG 1 MG/10 ML SYRINGE ONE (13:45)
[2019-12-15] MEDS ORDERED: fentaNYL (PF) 50 MCG/ML 2 ML AMP ONE (13:45)
[2019-12-15] MEDS ORDERED: ePHEDrine SULFATE/0.9% NACL/PF 50 MG/5 ML SYRINGE IV ONE (13:45)
[2019-12-15] MEDS ORDERED: LIDOCAINE 1% INJ 10MG/ML (20 ML MDV) ONE (13:45)
[2019-12-15] MEDS ORDERED: HYDROmorphone (PF) 1 MG/ML ONE (13:45)
[2019-12-15] MEDS ORDERED: BUPIVACAINE (PF) 0.25% 30 ML VIAL SQ ONE ×2 (14:57)
[2019-12-15] MEDS ORDERED: LACTATED RINGERS 1,000 ML IV ONE (15:57)
--- NOTE | 2019-12-15 19:46 | P.OP ---
Date of Procedure: 12/15/19 Preoperative Diagnosis: Adenocarcinoma of the prostate Postoperative Diagnosis: Same Procedure(s) Performed: Robotic-assisted laparoscopic prostatectomy (RALP) with bilateral pelvic lymphadenectomy Anesthesia: QUE Surgeon: Bryan Suarez Loftsman #1: Han Mcconnell Estimated Blood Loss (ml): 350 IV fluids (ml): 1,700 Condition: stable Disposition: PACU Indications for Procedure: The patient is a 69-year-old white male whose PSA level tatiana to 7.53 and N ov2017. He underwent a prostate ultrasound with biopsies, revealing [place] 6 adenocarcinoma in 3 of 12 biopsies. He chose active surveillance over treatment. An MRI in February 2019 was suboptimal. In August 2019, the PSA level tatiana to 9.0. Repeat biopsies showed a prostate volume of 41.7 mL, and 4 of 12 biopsies showed evidence of adenocarcinoma, with 2 revealing [place] 7 adenocarcinoma (3+4) in 2 revealing [place] 6 adenocarcinoma. Had a lengthy discussion with the patient and his family, suggesting that the findings were consistent with disease progression and in view of this he was advised to undergo treatment. He was advised that optimal options include a robotic- assisted laparoscopic prostatectomy (RALP) versus IMRT and he elects to undergo an RALP. Operative Findings: No evidence of extraprostatic disease. Description of Procedure: The patient was taken in the operating room and placed in the dorsal lithotomy position, with his legs supported in José Manuel stirrups. He was carefully positioned on a beanbag for stability. The abdomen and external genitalia were prepped and draped sterilely. A Christensen catheter was inserted. The Veress needle was passed through the anterior abdominal wall immediately cephalad to the umbilicus, and insufflation was performed to a pressure of 20 mm Hg. Once insufflation was performed, the Veress needle was removed and a supraumbilical incision was made, through which a 12 mm camera port was placed. Under camera guidance, 3 8 mm robotic ports were placed, 2 on the left and one on the right. An additional 12 mm port was placed on the right lateral side for use as an assistant men's lacrosse coach port. A 5 mm port was placed to the right of the camera port for suction. The patient was placed in Trendelenburg position, and docking was then performed to the da Irvin system utilizing a 4-arm approach. The abdomen was examined. The sigmoid colon was mobilized out of the pelvis. The peritoneum was incised lateral to the medial umbilical ligaments bilaterally, exposing the pubis. The peritoneum was then incised across the midline, allowing the bladder flap to be taken down. The endopelvic fascia was opened bilaterally, and muscular attachments from the urogenital diaphragm were swept away from the prostate. Bilateral pelvic lymphadenectomies were performed in the standard fashion. The peritoneal incisions were extended in a cephalad direction, and the vas deferens were divided bilaterally. Margins of dissection were the bifurcation of the iliac vessels proximally, the circumflex iliac vein distally, the external iliac artery laterally, and the obturator nerve medially. A combination of sharp and blunt dissection was used. Care was taken to avoid any neurovascular injury, and the use of monopolar electrocautery was avoided immediately adjacent to neurovascular structures. The lymphatic package was clipped distally. No enlarged lymph nodes were encountered. There were no complications. The vesical neck was incised transversely, down to the lumen. The Christensen catheter was brought out through the anterior vesical neck incision and was used for traction. It was noted at this time that the patient had a median lobe. The plane of dissection was directed posteriorly to allow the median lobe to be removed in its entirety. This did result in some thinning of the vesical neck. After incising the posterior aspect of the vesical neck, the anterior layer of the Denonvilliers fascia was incised, exposing the vas deferens. Each were isolated and divided. Next, each of the seminal vesicles were dissected away from adjacent tissues, and vascular attachments were cauterized and divided. The posterior leaf of Denonvilliers fascia was incised transversely, allowing entry into the plane between the prostate and rectum. With lateral spreading, this plane was developed down to the apex. This exposed the lateral vascular pedicles bilaterally. These were clipped and divided in an antegrade fashion, down to the apex. The use of electrocautery was avoided to prevent thermal damage to the nerves. The plane of dissection was that of a partial nerve sparing procedure. The remaining apical attachments were swept away from the prostate. The dorsal venous complex was incised, as well as periurethral tissue. At this point, only the urethra remained intact. This was transected 2-3 mm distal to the prostatic apex using cold scissors, in view of the location of his positive biopsies. The specimen was placed within a specimen bag. It should be noted that a protuberance of the pubic symphysis made the apical dissection and the subsequent vesicourethral anastomosis quite difficult. The dorsal venous complex was sutured using a V-Loc suture in a running fashion. A second V-Loc suture was then used to place the Dorian stitch, incorporating the rhabdosphincter and the edge of Denonvilliers fascia. This allowed the bladder to be taken down to the urethra, leaving the vesical neck immediately adjacent to the urethra. The vesicourethral anastomosis was then performed using a V-Loc suture in a running fashion. After completing the anastomosis, an 18[place] Christensen catheter was placed and approximately 150 mL of 0.9 normal saline were instilled into the bladder. No extravasation of irrigant from the vesicourethral anastomosis was noted. A small amount of oozing was noted from the left lateral vascular pedicle, so Surgicel was placed over this. Tisseel was sprayed into the pelvis over the vascular pedicles, dorsal vein, and ves icourethral anastomosis. The patient was returned to the supine position. Undocking was performed, and the specimen bag sutures were passed through the camera port. After removing all the ports and allowing all of the CO2 to be released from the peritoneal cavity, the camera port incision was enlarged to allow removal of the surgical specimen. The fascia of this incision was then closed using 0-PDS suture in a running fashion. Each of the skin incisions were then closed using 4-0 Monocryl suture in a subcuticular fashion. Marcaine was injected at each of the incision sites. Dermabond was applied to each incision. The Christensen catheter was connected to gravity drainage. All sponge and needle counts were correct. The patient tolerated the procedure well was taken to the recovery room in stable condition.
[2019-12-15] MEDS ORDERED: KETOROLAC 15 MG/ML 1 ML VIAL IVP PRN (19:47)
[2019-12-15] MEDS ORDERED: ONDANSETRON 4 MG/2 ML VIAL IVP PRN (19:47)
[2019-12-15] MEDS ORDERED: HYDROmorphone 1 MG/ML 1 ML SYRINGE IVP PRN (19:47)
[2019-12-15] MEDS ORDERED: ACETAMINOPHEN TAB 325 MG TAB PO PRN (19:47)
[2019-12-15 19:52] VITALS: RESP 18
[2019-12-15] MEDS ORDERED: ATORVASTATIN 10 MG TAB PO SCH (21:00)
[2019-12-15] MEDS: HEPARIN SODIUM,PORCINE 5,000 UNIT/ML 1 ML VIAL SQ SCH (21:58)
[2019-12-15] MEDS: DEXTROSE 5%-0.45% NACL 1,000 ML IV SCH (22:00)
[2019-12-16] MEDS: LACTATED RINGERS 1,000 ML IV SCH (04:55)
[2019-12-16] MEDS: DEXTROSE 5%-0.45% NACL 1,000 ML IV SCH ×2 (04:56→13:59)
[2019-12-16] MEDS: HEPARIN SODIUM,PORCINE 5,000 UNIT/ML 1 ML VIAL SQ SCH (07:25)
[2019-12-16 14:42] VITALS: BP 122/74; PULSE 89; TEMP 98.3
--- NOTE | 2019-12-16 16:41 | P.DS ---
Providers Expected date of discharge: 12/16/19 Attending physician: Bryan Suarez Primary care physician: Harinder Hernandezher - Discharge Diagnosis(es) (1) Malignant neoplasm of prostate Current Visit: No Status: Acute Hospital Course: On the day of admission, the patient underwent an uncomplicated RALP with bilateral pelvic lymphadenectomy. The perioperative course was unremarkable. Patient remained afebrile with stable vital signs. On the first postoperative day, he was ambulating without difficulty and tolerating regular diet. He had not had a bowel movement. The Christensen catheter was draining clear yellow urine, with good urine output. The abdomen was soft and non-distended. The incisions were clean and dry. Procedures: Robotic-assisted laparoscopic prostatectomy (RALP) and bilateral pelvic lymphadenectomy on 12/15/2019 Patient Condition at Discharge: Good Plan - Discharge Summary Discharge Rx Participant: Yes New Discharge Prescriptions: New Ciprofloxacin HCl [Cipro] 250 mg PO Q12HR #6 tablet No Action Simvastatin [Zocor] 20 mg PO HS Metoprolol Succinate [Toprol XL] 50 mg PO W/SUPPER Potassium Citrate [Potassium Citrate ER] 1,620 meq PO BID Ubidecarenone [Co Q-10] 100 mg PO DAILY Discharge Medication List Metoprolol Succinate [Toprol XL] 50 mg PO W/SUPPER 08/07/14 [History] Simvastatin [Zocor] 20 mg PO HS 08/07/14 [History] Potassium Citrate [Potassium Citrate ER] 1,620 meq PO BID 12/12/19 [History] Ubidecarenone [Co Q-10] 100 mg PO DAILY 12/12/19 [History] Ciprofloxacin HCl [Cipro] 250 mg PO Q12HR #6 tablet 12/16/19 [Rx] Follow up Appointment(s)/Referral(s): Bryan Suarez MD [STAFF PHYSICIAN] - 12/27/19 Activity/Diet/Wound Care/Special Instructions: Discharge home with Christensen catheter. Instruct patient to use overnight drainage bag as well as urinary leg bag. Okay to shower. Diet as tolerated. No lifting, driving, or strenuous activity. Reassure patient that abdominal wall ecchymosis and penoscrotal swelling are normal. Instruct patient to begin taking antibiotics one day prior to Christensen catheter removal. Discharge Disposition: HOME SELF-CARE
[2019-12-16] MEDS ORDERED: METOPROLOL SUCCINATE (ER) 50 MG TAB.ER.24H PO SCH (17:30)
== END 2019-12-16 17:14 | disposition home or self-care (01) ==
LOC: OR 10:00 → 4SSUR 20:18 → OR 12-16 17:14
PROVIDERS: ATTEND Urology
DX: C61 Malignant neoplasm of prostate (principal); I11.0 Hypertensive heart disease with heart failure; I50.22 Chronic systolic (congestive) heart failure; I42.8 Other cardiomyopathies; G47.33 Obstructive sleep apnea (adult) (pediatric); E78.2 Mixed hyperlipidemia; J98.6 Disorders of diaphragm; M19.90 Unspecified osteoarthritis, unspecified site; F40.240 Claustrophobia; K21.9 Gastro-esophageal reflux disease without esophagitis; Z88.1 Allergy status to other antibiotic agents; Z88.8 Allergy status to other drugs, medicaments and biological substances; Z87.442 Personal history of urinary calculi; Z79.899 Other long term (current) drug therapy; Z87.01 Personal history of pneumonia (recurrent); Z90.49 Acquired absence of other specified parts of digestive tract; Z98.890 Other specified postprocedural states; Z96.643 Presence of artificial hip joint, bilateral; Z96.662 Presence of left artificial ankle joint; Z82.49 Family history of ischemic heart disease and other diseases of the circulatory system; Z80.9 Family history of malignant neoplasm, unspecified; Z96.652 Presence of left artificial knee joint
CPT/HCPCS: 88305; 84132; 88307; 88309; 55866; 38571; J2250; J1644 ×2; J2710; J2405; J1956; J2001; J3010; J1170 ×2; J2370; J0330; 86850; 86900; 86901

== ENCOUNTER → 2020-01-24 | Outpatient (CLI) | payer MEDICARE, BC | END | disposition home or self-care (01) | LOC: LABWHC1 09:18 | PROVIDERS: ATTEND Urology | DX: C61 Malignant neoplasm of prostate (principal) | CPT/HCPCS: 36415; 84153 ==

== ENCOUNTER → 2020-04-16 | Outpatient (CLI) | payer MEDICARE, BC | END | disposition home or self-care (01) | LOC: LABWHC1 08:21 | PROVIDERS: ATTEND Urology | DX: R97.20 Elevated prostate specific antigen [PSA] (principal) | CPT/HCPCS: 36415; 84153 ==

== ENCOUNTER → 2020-07-18 | Outpatient (CLI) | payer MEDICARE, BC ==
[2020-07-18 08:13] LABS: Appearance,Urine Clear (Clear); Bilirubin,Urine Negative (Negative); Blood,Urine Small (Negative); Color,Urine Yellow; Glucose,Urine (UA) Negative (Negative); Ketones,Urine Negative (Negative); Leukocyte Esterase,Urine Negative (Negative); Mucus,Urine Rare /hpf; Nitrite,Urine Negative (Negative); Protein,Urine Negative (Negative); Specific Gravity,Urine 1.021 (1.001-1.035); Urobilinogen,Urine <2.0 mg/dL (<2.0); WBC,Urine <1 /hpf (0-5)
[2020-07-18 10:49] LABS: Basophils # (A) 0.03 X 10*3/uL (0.00-0.10); Basophils % (A) 0.4 %; Eosinophils # (A) 0.44 X 10*3/uL (0.04-0.35); Eosinophils % (A) 6.3 %; HGB 15.7 g/dL (13.0-17.0); Lymphocytes # (A) 1.92 X 10*3/uL (0.90-5.00); Lymphocytes % (A) 27.7 %; MCH 28.9 pg (27.0-32.0); MCV 90.2 fL (80.0-97.0); Mean Platelet Volume 11.1 fL (9.5-12.2); Monocytes # (A) 0.58 X 10*3/uL (0.20-1.00); Monocytes % (A) 8.4 %; Neutrophils # (A) 3.96 X 10*3/uL (1.80-7.70); Neutrophils % (A) 57.1 %; Platelet Count 148 X 10*3/uL (140-440); RBC 5.43 X 10*6/uL (4.40-5.60); RDW 15.2 % (11.5-14.5); WBC 6.94 X 10*3/uL (4.50-10.00)
[2020-07-18 12:01] LABS: ALT 29 U/L (10-49); AST 24 U/L (14-35); African American GFR (CKD) 63.6 (60.0-200.0); Alkaline Phosphatase 83 U/L (41-126); BUN/Creat Ratio 17.69 Ratio (12.00-20.00); Calcium 9.4 mg/dL (8.7-10.3); Carbon Dioxide 25.8 mmol/L (21.6-31.8); Chloride 103 mmol/L (96-109); Chol/HDL Ratio 3.04; Cholesterol 149 mg/dL (0-200); Globulin 2.1 g/dL (1.6-3.3); Glucose 105 mg/dL (70-110); LDL Cholesterol,Calculated 78.2 mg/dL (0.0-131.0); Magnesium 1.9 mg/dL (1.5-2.4); Non-African American GFR(CKD) 54.9 (60.0-200.0); Potassium 4.5 mmol/L (3.5-5.5); Sodium 139 mmol/L (135-145); Total Bilirubin 0.9 mg/dL (0.2-1.2); Total Protein 6.5 g/dL (6.2-8.2)
[2020-07-18 13:11] LABS: Prostate Specific Antigen <0.1 ng/mL (0.0-6.5)
== END | disposition home or self-care (01) ==
LOC: LABWHC1 07:01
PROVIDERS: ATTEND Internal Medicine
DX: Z00.00 Encounter for general adult medical examination without abnormal findings (principal); C61 Malignant neoplasm of prostate; I10 Essential (primary) hypertension; E78.2 Mixed hyperlipidemia
CPT/HCPCS: 36415; 80053; 80061; 81001; 83735; 84153; 84443; 85025

== ENCOUNTER → 2021-02-06 | Outpatient (CLI) | payer MEDICARE, BC | END | disposition home or self-care (01) | LOC: LABWHC1 08:15 | PROVIDERS: ATTEND Urology | DX: C61 Malignant neoplasm of prostate (principal) | CPT/HCPCS: 36415; 84153 ==

== ENCOUNTER → 2021-05-28 | Outpatient (CLI) | payer MEDICARE ==
[2021-05-28 15:09] LABS: African American GFR (CKD) 57.8 (60.0-200.0); Albumin 4.3 g/dL (3.8-4.9); Albumin/Globulin Ratio 1.59 (1.60-3.17); Anion Gap 10.6 mmol/L (10.00-18.00); BUN/Creat Ratio 18.43 Ratio (12.00-20.00); Blood Urea Nitrogen 25.8 mg/dL (9.0-27.0); Calcium 9.1 mg/dL (8.7-10.3); Carbon Dioxide 24.4 mmol/L (20.0-27.5); Globulin 2.7 g/dL (1.6-3.3); Non-African American GFR(CKD) 49.8 (60.0-200.0); Potassium 5.1 mmol/L (3.5-5.5); Total Bilirubin 0.6 mg/dL (0.30-1.20)
== END | disposition home or self-care (01) ==
LOC: LABWHC1 07:26
PROVIDERS: ATTEND Internal Medicine Interventional Cardiology
DX: I42.8 Other cardiomyopathies (principal)
CPT/HCPCS: 36415; 80053; 83880

== ENCOUNTER → 2021-08-22 | Outpatient (CLI) | payer MEDICARE | END | disposition home or self-care (01) | LOC: LABWHC1 07:33 | PROVIDERS: ATTEND Urology | DX: C61 Malignant neoplasm of prostate (principal) | CPT/HCPCS: 36415; 84153 ==

== ENCOUNTER → 2022-03-04 | Outpatient (CLI) | payer MEDICARE | END | disposition home or self-care (01) | LOC: LABWHC1 07:34 | PROVIDERS: ATTEND Urology | DX: C61 Malignant neoplasm of prostate (principal) | CPT/HCPCS: 36415; 84153 ==

== ENCOUNTER 2022-05-08 12:01 | Emergency (ER) | payer MEDICARE ==
[2022-05-08 12:25] VITALS: RESP 18
--- NOTE | 2022-05-08 12:54 | ED ---
Lower Extremity Injury HPI - General Chief Complaint: Extremity Injury, Lower Stated Complaint: rt sided hip pain Time Seen by Provider: 05/08/22 12:29 Source: patient Mode of arrival: ambulatory Limitations: no limitations - History of Present Illness Initial Comments: 71-year-old male history of bilateral hip replacements in the past who was cutting wood this morning and went to push a log out of the way when he felt a popping sensation in the right hip. He states pain is somewhat improved since then who is difficult ably initially however. He states he felt a grinding sensation. He also states he was told by an orthopedic surgeon he has similar 0.5-10 years left for this particular hip replacement. He denies any other injuries no other complaints modifying factors no weakness to lower extremity MD Complaint: hip injury - Related Data Home Medications Medication Instructions Recorded Confirmed Metoprolol Succinate [Toprol XL] 50 mg PO W/SUPPER 08/07/14 12/15/19 Simvastatin [Zocor] 20 mg PO HS 08/07/14 12/15/19 Potassium Citrate [Potassium 1,620 meq PO BID 12/12/19 12/15/19 Citrate ER] Ubidecarenone [Co Q-10] 100 mg PO DAILY 12/12/19 12/15/19 Previous Rx's Medication Instructions Recorded Ciprofloxacin HCl [Cipro] 250 mg PO Q12HR #6 tablet 12/16/19 Allergies Allergy/AdvReac Type Severity Reaction Status Date / Time cephalexin monohydrate Allergy Swelling,SO Verified 05/08/22 12:26 [From Keflex] B prednisone Allergy Abdominal Verified 05/08/22 12:26 Pain, ABDOMINAL BLOATING Review of Systems ROS Statement: Those systems with pertinent positive or pertinent negative responses have been documented in the HPI. ROS Other: All systems not noted in ROS Statement are negative. Past Medical History Past Medical History: GERD/Reflux, Hyperlipidemia, Osteoarthritis (OA), Pneumonia Additional Past Medical History / Comment(s): kidney stones-HAD EPISODE OF KIDNEY FAILURE SINCE RESOLVED, DENIES ANY HIGH BP TAKES MEDS D/T"LOWER CHAMBER OF HEART IS SLUGGISH", nonischemic cardiomyopathy, paralysis of the left diaphragm History of Any Multi-Drug Resistant Organisms: None Reported Past Surgical History: Cholecystectomy, Heart Catheterization, Joint Replacement, Orthopedic Surgery Additional Past Surgical History / Comment(s): Nasal surgery, "paralyzed diaphragm lt side happened during lt shoulder sx had corrective sx on diapragm at [facility], total lt ankle, total rt hip, left knee,meniscus repair , right hand carpal tunnel surgery, lithothripsy x2, rt foot, Past Anesthesia/Blood Transfusion Reactions: Previous Problems w/ Anesthesia, Family History of Problems w/ Anesthesia Additional Past Anesthesia/Blood Transfusion Reaction / Comment(s): pt aspirated during sx once and had post op pne. clausterphobia. pt's mom had diffiuclty waking after anesthesia Past Psychological History: No Psychological Hx Reported Smoking Status: Never smoker Past Alcohol Use History: Rare Past Drug Use History: None Reported - Past Family History Mother Family Medical History: Cancer Additional Family Medical History / Comment(s): Mother is alive at 89 with no major medical problems. Sister(s) Additional Family Medical History / Comment(s): Patient has 2 sisters with no major medical problems. Patient does not have any brothers. Daughter(s) Additional Family Medical History / Comment(s): Patient has 2 daughters and 1 son with no major medical problems. General Exam - General Exam Comments Initial Comments: This is a well-developed well-nourished awake alert oriented 4 male demonstrate a [place] Coma Scale of 15 Limitations: no limitations General appearance: alert, in no apparent distress Head exam: Present: atraumatic, normocephalic, normal inspection Eye exam: Present: normal appearance Neck exam: Present: full ROM Rectal exam: Present: deferred Extremities exam: Present: normal inspection, full ROM, tenderness (Minimal tenderness palpation over the right hip no step-off or crepitation no shortening or rotation.), normal capillary refill Back exam: Present: full ROM. Absent: tenderness Neurological exam: Present: alert, oriented X3, CN II-XII intact Psychiatric exam: Present: normal affect, normal mood Skin exam: Present: warm, dry, intact, normal color. Absent: rash Course Vital Signs 05/08/22 12:21 Temperature 97.4 F L Pulse Rate 69 Respiratory 18 Rate Blood Pressure 128/83 O2 Sat by Pulse 96 Oximetry Medical Decision Making - Medical Decision Making I did discuss [employer] the patient family regarding the findings of fractures seen no evidence of gross subluxation though that does appear that the prosthetic hip is subluxed within the cup is already known. Patient will be discharged home with follow-up with his orthopedist and the [place] area. Copy of the x-ray and report with the patient. Tylenol for pain I did discuss with the patient precautions to take so does not get exacerbated. This did include using a cane Was pt. sent in by a medical professional or institution ([facility], MARKETING COMPLIANCE MANAGER, urgent care, hospital, or long-term...) When possible be specific @ -[No] Did you speak to anyone other than the patient for history (EMS, parent, family, police, friend...)? What history was obtained from this source @ -[No] Did you review nursing and triage notes (agree or disagree)? Why? @ Yes I agree -[I reviewed and agree with nursing and triage notes] Were old charts reviewed (outside hosp., previous admission, EMS record, old EKG, old radiological studies, urgent care reports/EKG's, long-term records)? Report findings @ -[No old charts were reviewed] Differential Diagnosis (chest pain, altered mental status, abdominal pain women, abdominal pain men, vaginal bleeding, weakness, fever, dyspnea, syncope, headache, dizziness, GI bleed, back pain, seizure, CVA, palpatations, mental health)? @ Hip dislocation versus fracture-] EKG interpreted by me (3pts min.). @ -[As above] X-rays interpreted by me (1pt min.). @ -Interpreted by me no evidence of acute fracture evidence of subluxation of the ball of the hip in the cup.] CT interpreted by me (1pt min.). @ -[None done] U/S interpreted by me (1pt. min.). @ -[None done] What testing was considered but not performed or refused? (CT, X-rays, U/S, labs)? Why? @ -[None] What meds were considered but not given or refused? Why? @ -[None] Did you discuss the management of the patient with other professionals (professionals i.e. [facility], MARKETING COMPLIANCE MANAGER, lab, RT, psych nurse, manager social media, lawyer real estate, teacher, investigation officer, returned case inspector)? Give summary @ -[No] Was smoking cessation discussed for >3mins.? @ -[No] Was critical care preformed (if so, how long)? @ -[No] Were there social determinants of health that impacted care today? How? (Homele ssness, low income, unemployed, alcoholism, drug addiction, transportation, low edu. Level, literacy, decrease access to med. care, nursing home, rehab)? @ -[No] Was there de-escalation of care discussed even if they declined (Discuss DNR or withdrawal of care, Hospice)? DNR status @ -[No] What co-morbidities impacted this encounter? (DM, HTN, Smoking, COPD, CAD, Cancer, CVA, ARF, Chemo, Hep., AIDS, mental health diagnosis, sleep apnea, morbid obesity)? @ -[None] Was patient admitted / discharged? Hospital course, mention meds given and route, prescriptions, significant lab abnormalities, going to OR and other pertinent info. @ Patient was discharged-[hospital course] Undiagnosed new problem with uncertain prognosis? @ -[No] Drug Therapy requiring intensive monitoring for toxicity (Heparin, Nitro, Insulin, Cardizem)? @ -[No] Were any procedures done? @ -[No] Diagnosis/symptom? @ Radial strain-[default] Acute, or Chronic, or Acute on Chronic? @ Acute hip strain-[default] Uncomplicated (without systemic symptoms) or Complicated (systemic symptoms)? @ -[default] Side effects of treatment? @ -[No] Exacerbation, Progression, or Severe Exacerbation? @ -[No] Poses a threat to life or bodily function? How? (Chest pain, [place], [place], pneumonia, PE, COPD, DKA, ARF, appy, cholecystitis, CVA, Diverticulitis, Homicidal, Suicidal, threat to staff... and all critical care pts) @ -[No] - Radiology Data Interpreted by me: I did evaluate the x-rays no definitive dislocation all over the right hip does appear to be subluxed within the cup of the prosthetic device. This is a known problem that the patient is aware of. Disposition Clinical Impression: Strain of right hip Disposition: HOME SELF-CARE Condition: Good Instructions (If sedation given, give patient instructions): Groin Strain (ED), Hip Pain (ED) Additional Instructions: [id number] pain medication, follow-up with her orthopedist Is patient prescribed a controlled substance at d/c from ED?: No Referrals: Harinder Bell MD [Primary Care Provider] - 1-2 days Decision Date: 05/08/22 Decision Time: 14:17
--- NOTE | 2022-05-08 13:11 | XR ---
EXAMINATION TYPE: XR Hip RT and AP Pelvis DATE OF EXAM: 05/08/2022 COMPARISON: Abdominal x-ray 2017 HISTORY: Injury with pain. TECHNIQUE: A single AP view of the pelvis is obtained. Two views of the right hip are obtained. 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 On current study, the metallic right fe moral head has displaced from central location to more superior position relative to the metallic sony tabular cup suggesting subluxation injury or possible hardware failure. There is no complete dislocat ion from the metallic acetabular cup on images obtained. No acute fracture is seen. Pubic symphysis r emains intact. Sacroiliac joints are preserved. Heterotopic ossification superior to the greater troc hanter is redemonstrated. There is persistent disc space narrowing and spurring with sclerosis in the lumbar spine greatest at left L3-L4 level. IMPRESSION: As above.
[2022-05-08 14:28] VITALS: BP 138/74; PULSE 68; TEMP 98.2
== END 2022-05-08 14:28 | disposition home or self-care (01) ==
LOC: EC 12:01
DX: S76.011A Strain of muscle, fascia and tendon of right hip, initial encounter (principal); E78.5 Hyperlipidemia, unspecified; Z88.1 Allergy status to other antibiotic agents; Z95.9 Presence of cardiac and vascular implant and graft, unspecified; Z90.49 Acquired absence of other specified parts of digestive tract; Z79.899 Other long term (current) drug therapy; Z87.442 Personal history of urinary calculi; X50.0XXA Overexertion from strenuous movement or load, initial encounter; Y93.89 Activity, other specified; Y92.009 Unspecified place in unspecified non-institutional (private) residence as the place of occurrence of the external cause
CPT/HCPCS: 73502; 99283

== ENCOUNTER → 2022-09-25 | Outpatient (CLI) | payer MEDICARE ==
[2022-09-25 16:01] LABS: Basophils # (A) 0.03 X 10*3/uL (0.00-0.10); Basophils % (A) 0.4 %; Eosinophils # (A) 0.28 X 10*3/uL (0.04-0.35); Eosinophils % (A) 3.7 %; HCT 49.2 % (39.6-50.0); HGB 15.5 g/dL (13.0-17.0); Immature Grans, Automated 0.3 %; Lymphocytes # (A) 1.92 X 10*3/uL (0.90-5.00); Lymphocytes % (A) 25.7 %; MCH 28.2 pg (27.0-32.0); MCHC 31.5 g/dL (32.0-37.0); MCV 89.5 fL (80.0-97.0); Mean Platelet Volume 10.3 fL (9.5-12.2); NRBC Per 100 WBC 0 /100 WBCS (0.0-0.0); Neutrophils # (A) 4.63 X 10*3/uL (1.80-7.70); Neutrophils % (A) 61.9 %; Platelet Count 165 X 10*3/uL (140-440); RDW 15.7 % (11.5-14.5); WBC 7.48 X 10*3/uL (4.50-10.00)
[2022-09-25 16:26] LABS: ALT 23 U/L (10-49); AST 22 U/L (14-35); African American GFR (CKD) 65.2 (60.0-200.0); Albumin 4.3 g/dL (3.8-4.9); Albumin/Globulin Ratio 1.87 (1.60-3.17); Alkaline Phosphatase 105 U/L (41-126); BUN/Creat Ratio 19.37 Ratio (12.00-20.00); Blood Urea Nitrogen 24.4 mg/dL (9.0-27.0); Calcium 9.4 mg/dL (8.7-10.3); Carbon Dioxide 27.1 mmol/L (20.0-27.5); Chloride 105 mmol/L (96-109); Chol/HDL Ratio 3.03 Ratio; Globulin 2.3 g/dL (1.6-3.3); Glucose 114 mg/dL (70-110); LDL Cholesterol,Calculated 65.2 mg/dL (0.0-131.0); Non-African American GFR(CKD) 56.2 (60.0-200.0); Potassium 5.5 mmol/L (3.5-5.5); Sodium 142 mmol/L (135-145); Total Protein 6.6 g/dL (6.2-8.2)
== END | disposition home or self-care (01) ==
LOC: LABWHC1 09:10
PROVIDERS: ATTEND Internal Medicine
DX: Z00.00 Encounter for general adult medical examination without abnormal findings (principal); I10 Essential (primary) hypertension; E78.2 Mixed hyperlipidemia; R73.03 Prediabetes
CPT/HCPCS: 36415; 80053; 80061; 84439; 84443; 85025

== ENCOUNTER → 2022-12-16 | Outpatient (CLI) | payer MEDICARE ==
[2022-12-16 15:48] LABS: BUN/Creat Ratio 20.07 Ratio (12.00-20.00); Blood Urea Nitrogen 28.1 mg/dL (9.0-27.0); Calcium 8.9 mg/dL (8.7-10.3); Carbon Dioxide 25.1 mmol/L (21.6-31.8); Chloride 107 mmol/L (96-109); Glucose 111 mg/dL (70-110); Sodium 142 mmol/L (135-145)
== END | disposition home or self-care (01) ==
LOC: LABWHC1 07:51
PROVIDERS: ATTEND Internal Medicine Interventional Cardiology
DX: I42.8 Other cardiomyopathies (principal)
CPT/HCPCS: 36415; 80048

== ENCOUNTER → 2023-03-09 | Outpatient (CLI) | payer MEDICARE | END | disposition home or self-care (01) | LOC: LABWHC1 08:27 | PROVIDERS: ATTEND Urology | DX: C61 Malignant neoplasm of prostate (principal) | CPT/HCPCS: 36415; 84153 ==

== ENCOUNTER → 2023-04-06 | Outpatient (CLI) | payer MEDICARE ==
[2023-04-06 19:02] LABS: Anion Gap 9.2 mmol/L (4.00-12.00); Carbon Dioxide 26.8 mmol/L (21.6-31.8); Potassium 5.4 mmol/L (3.5-5.5)
== END | disposition home or self-care (01) ==
LOC: LABWHC1 10:57
PROVIDERS: ATTEND Urology
DX: C61 Malignant neoplasm of prostate (principal); N20.0 Calculus of kidney; R31.29 Other microscopic hematuria; R97.20 Elevated prostate specific antigen [PSA]; N52.9 Male erectile dysfunction, unspecified; N20.1 Calculus of ureter; N39.0 Urinary tract infection, site not specified; R97.21 Rising PSA following treatment for malignant neoplasm of prostate; R31.0 Gross hematuria; R31.21 Asymptomatic microscopic hematuria; E87.5 Hyperkalemia
CPT/HCPCS: 36415; 80051

== ENCOUNTER → 2023-06-02 | Outpatient (CLI) | payer MEDICARE ==
[2023-06-02 09:15] LABS: ALT 21 U/L (4-49); AST 28 U/L (17-59); African American GFR (CKD) 66 (>60 ml/min/1.73 sqM); Albumin 4.3 g/dL (3.5-5.0); Albumin/Globulin Ratio 1.5; Alkaline Phosphatase 75 U/L (38-126); Anion Gap 7 mmol/L; Blood Urea Nitrogen 26 mg/dL (9-20); Calcium 8.9 mg/dL (8.4-10.2); Carbon Dioxide 27 mmol/L (22-30); Chloride 105 mmol/L (98-107); Globulin 2.8 g/dL; Glucose 105 mg/dL (74-99); Magnesium 1.8 mg/dL (1.6-2.3); Non-African American GFR(CKD) 57 (>60 ml/min/1.73 sqM); Potassium 4.7 mmol/L (3.5-5.1); Sodium 139 mmol/L (137-145); Total Bilirubin 1.1 mg/dL (0.2-1.3); Total Protein 7.1 g/dL (6.3-8.2)
[2023-06-02 09:24] LABS: NT-Pro-B-Type Natriuretic Pept 868 pg/mL
[2023-06-02 15:27] LABS: Basophils # (A) 0.04 X 10*3/uL (0.00-0.10); Basophils % (A) 0.6 %; Eosinophils # (A) 0.22 X 10*3/uL (0.04-0.35); Eosinophils % (A) 3.2 %; Lymphocytes # (A) 2.06 X 10*3/uL (0.90-5.00); Lymphocytes % (A) 29.8 %; MCH 29.1 pg (27.0-32.0); MCV 91.1 FL (80.0-97.0); Monocytes # (A) 0.49 X 10*3/uL (0.20-1.00); Monocytes % (A) 7.1 %; NRBC Per 100 WBC 0 X 10*3/uL (0.00-0.01); Neutrophils # (A) 4.09 X 10*3/uL (1.80-7.70); Neutrophils % (A) 59.2 %; Platelet Count 153 X 10*3/uL (140-440); RBC 5.49 X 10*6/uL (4.40-5.60); RDW 15.8 % (11.5-14.5); WBC 6.91 X 10*3/uL (4.50-10.00)
[2023-06-02 15:50] LABS: Chol/HDL Ratio 2.92 Ratio; LDL Cholesterol,Calculated 79.7 mg/dL (0.0-131.0)
[2023-06-02 18:50] LABS: Urine Creatinine 82.7 mg/dL (39.0-259.0)
== END | disposition home or self-care (01) ==
LOC: LABWHC1 08:31
PROVIDERS: ATTEND Internal Medicine
DX: I10 Essential (primary) hypertension (principal); E11.9 Type 2 diabetes mellitus without complications; N20.0 Calculus of kidney; I42.9 Cardiomyopathy, unspecified; E78.2 Mixed hyperlipidemia
CPT/HCPCS: 36415; 80053; 80061; 82043; 82570; 83036; 83735; 83880; 83970; 84443; 85025

== ENCOUNTER → 2023-09-10 | Outpatient (CLI) | payer MEDICARE, OTHER ==
--- NOTE | 2023-09-10 18:19 | MR ---
EXAMINATION TYPE: MR lumbar spine wo con DATE OF EXAM: 09/10/2023 COMPARISON: None HISTORY: Spinal stenosis. TECHNIQUE: Multiplanar, multisequence images of the lumbar spine were acquired without IV contrast. Findings: The lumbar vertebral segments are normal in height and alignment and there is no fracture or subluxat ion. There is severe degenerative disease at the L3-4, L4-5 and L5-S1 levels were there is severe disc spa ce narrowing, discogenic endplate changes, circumferential disc bulge and spondylosis There are no lumbar disc herniations. Secondary to moderate facet arthropathy, marked thickening of ligamentum flavum and cervical medullar y disc bulge there is a mild spinal stenosis the L4-5 level. There is moderate facet arthropathy at t he L3-4, L4-5 and L5-S1 levels. There is mild neural foraminal stenosis at the L4-5 level on the right and moderate neural foraminal stenosis at L5-S1 level on the right. There is severe neural foraminal stenosis at the L4-5 level on the left and mild neural foraminal stenosis at L5-S1 level on the left.. Visualized sacrum and SI joints normal. The paraspinal soft tissues unremarkable. IMPRESSION: 1. Severe degenerative disc disease from L3 through S1 with no lumbar disc herniations. 2. Mild canal stenosis at the L4-5 level as described above. 3. Bilateral neural foraminal stenosis at L4-5 and L5-S1 level as described above. 4. Moderate facet arthropathy in the lower lumbar spine as described above.
== END | disposition home or self-care (01) ==
LOC: RADMRIMAIN 13:32
PROVIDERS: ATTEND Orthopaedic Surgery Orthopaedic Surgery of the Spine
DX: M51.17 Intervertebral disc disorders with radiculopathy, lumbosacral region (principal); M47.26 Other spondylosis with radiculopathy, lumbar region; M99.73 Connective tissue and disc stenosis of intervertebral foramina of lumbar region; M43.16 Spondylolisthesis, lumbar region; M48.061 Spinal stenosis, lumbar region without neurogenic claudication
CPT/HCPCS: 72148

== ENCOUNTER → 2024-03-16 | Outpatient (CLI) | payer MEDICARE | END | disposition home or self-care (01) | LOC: LABWHC1 07:35 | PROVIDERS: ATTEND Urology | DX: C61 Malignant neoplasm of prostate (principal) | CPT/HCPCS: 36415; 84153 ==

== ENCOUNTER → 2024-05-23 | Outpatient (CLI) | payer MEDICARE ==
[2024-05-23 15:08] LABS: HCT 51.9 % (39.6-50.0); HGB 16.4 g/dL (13.0-17.0); MCH 29.3 pg (27.0-32.0); MCHC 31.6 g/dL (32.0-37.0); MCV 92.7 FL (80.0-97.0); Mean Platelet Volume 11.3 FL (9.5-12.2); NRBC Per 100 WBC 0 X 10*3/uL (0.00-0.01); Platelet Count 162 X 10*3/uL (140-440); RDW 15.5 % (11.5-14.5); WBC 6.34 X 10*3/uL (4.50-10.00)
[2024-05-23 16:17] LABS: ALT 16 U/L (10-49); AST 22 U/L (14-35); Albumin 4.3 g/dL (3.8-4.9); Albumin/Globulin Ratio 1.79 Ratio (1.60-3.17); Alkaline Phosphatase 80 U/L (41-126); BUN/Creat Ratio 22.17 Ratio (12.00-20.00); Bilirubin, Conjugated 0.32 mg/dL (0.20-0.40); Blood Urea Nitrogen 26.6 mg/dL (9.0-27.0); Calcium 9.5 mg/dL (8.7-10.3); Carbon Dioxide 26.7 mmol/L (21.6-31.8); Chloride 103 mmol/L (96-109); Chol/HDL Ratio 3.05 Ratio; Globulin 2.4 g/dL (1.6-3.3); Glucose 104 mg/dL (70-110); LDL Cholesterol,Calculated 89.8 mg/dL (0.0-131.0); Potassium 5.2 mmol/L (3.5-5.5); Sodium 140 mmol/L (135-145); Total Bilirubin 0.8 mg/dL (0.3-1.2); Total Protein 6.7 g/dL (6.2-8.2)
[2024-05-23 16:20] LABS: Bilirubin,Unconjugated 0.5 mg/dL (0.2-1.0)
[2024-05-23 22:02] LABS: NT-Pro-B-Type Natriuretic Pept 938 pg/mL (0-450)
== END | disposition home or self-care (01) ==
LOC: LABWHC1 09:06
PROVIDERS: ATTEND Internal Medicine Cardiovascular Disease
DX: I25.10 Atherosclerotic heart disease of native coronary artery without angina pectoris (principal); I42.0 Dilated cardiomyopathy
CPT/HCPCS: 36415; 80053; 80061; 82248; 83880; 84443; 85027; 86141